=== PATIENT | male | born 1950 | race African-American/Black ===

== ENCOUNTER 2017-07-11 16:00 | Inpatient (IN) ==
[2017-07-11] MEDS ORDERED: DIPH/TET/ACEL PERT BOOSTER VACCINE 0.5 ML VIAL IM ONE (16:28)
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
[2017-07-11 17:44] LABS: Basophils # 0.1 10*3/uL (0.0-0.2); Basophils % 0.4 % (0.0-0.8); Eosinophils # 0.1 10*3/uL (0.0-0.87); Eosinophils % 0.6 % (0.00-10.9); Hematocrit 46.9 VOL% (42.0-52.0); Hemoglobin 16.2 GM/DL (14.0-18.0); Immature Granulocytes % 0.5 %; Immature Granulocytes Absolute 0.07 #; Lymphocytes # 2.4 10*3/uL (1.4-4.0); Lymphocytes % 18.1 % (21.2-54.2); Mean Corpuscular HGB Conc 34.5 GM/DL (32-36); Mean Corpuscular Hemoglobin 32 PG (27-34); Mean Corpuscular Volume 93.6 FL (87-102); Mean Platelet Volume 9.1 FL (9.6-12.0); Monocytes # 0.9 10*3/uL (0.11-0.8); Monocytes % 7.1 % (1.7-12.7); Neutrophils # 9.8 10*3/uL (1.4-7.4); Neutrophils % 73.3 % (38.7-73.9); Platelet Count 240 T/CUMM (130-400); Red Blood Count 5.01 MC/CUMM (3.8-5.5); Red Cell Distribution Width 14.9 % (9.3-17.3); White Blood Count 13.3 T/CUMM (4-12)
[2017-07-11 17:55] LABS: INR 0.9; PT Patient Result 9.9 SECS; Partial Thromboplastin Time 21.2 SECS (0-40)
[2017-07-11 17:58] LABS: Barbiturates Screen,Urine Negative (Negative); Benzodiazepines Screen,Urine Negative (Negative); Cannabinoid Screen,Urine Negative (Negative); Opiate Screen,Urine Positive (Negative); Phencyclidine Screen,Urine Negative (Negative)
[2017-07-11] MEDS ORDERED: HYDROmorphone 2 MG/1 ML VIAL IV STA (18:06)
[2017-07-11] MEDS ORDERED: ONDANSETRON 4 MG/2 ML VIAL ONE (18:06)
[2017-07-11] MEDS ORDERED: HYDROmorphone 2 MG/1 ML VIAL ONE (18:06)
[2017-07-11] MEDS ORDERED: ONDANSETRON 4 MG/2 ML VIAL IV STA (18:06)
[2017-07-11 18:08] LABS: CKMB % 1.4 %; Troponin I Only < 0.015 NG/ML (0.00-0.045)
[2017-07-11 18:09] LABS: Alanine Aminotransferase 32 U/L (16-61); Albumin 3.3 G/DL (3.4-5.0); Alkaline Phosphatase 121 U/L (45-117); Amylase 76 U/L (25-115); Aspartate Amino Transferase 25 U/L (0-37); Bilirubin,Total < 0.39 MG/DL (0.2-1.0); Blood Urea Nitrogen 18 MG/DL (7-18); Calcium 9.9 MG/DL (8.5-10.1); Glucose 131 MG/DL (74-106); Osmolality,Calculated 280.5 MOS/KG (273-304); Potassium 3.7 MMOL/L (3.5-5.1); Sodium 139 MMOL/L (136-145); Total Protein 7.7 G/DL (6.4-8.3)
[2017-07-11] MEDS ORDERED: ONDANSETRON 4 MG/2 ML VIAL IV PRN (18:52)
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
[2017-07-11] MEDS: HYDROmorphone 2 MG/1 ML VIAL IV PRN (23:30)
[2017-07-12] MEDS: HYDROmorphone 2 MG/1 ML VIAL IV PRN ×2 (06:00→23:41)
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
--- NOTE | 2017-07-12 07:55 | Order Completion Report ---
See report scanned to EMR
[2017-07-12] MEDS: PANTOPRAZOLE 40 MG TABLET PO SCH (09:55)
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
[2017-07-12] MEDS ORDERED: POLYETHYLENE GLYCOL POWDER 17 GM PACK PO PRN (12:55)
[2017-07-12] MEDS ORDERED: ALBUTEROL/IPRATROPIUM 3 ML NEB RESP TX PRN (13:19)
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
[2017-07-12 14:42] LABS: Troponin I Only < 0.015 NG/ML (0.00-0.045)
--- NOTE | 2017-07-12 15:04 | XRay Report ---
XR orbits for mri Indication: MRI clearance Comparison: None Technique: 3 views of the orbits. Findings: No metallic orbital foreign body visualized. Visualized osseous and surrounding soft tissue structures demonstrate no acute abnormality. IMPRESSION: As above. PROCEDURE INTERPRETED AT [facility] DEPARTMENT OF RADIOLOGY Final Report Signed by: Dr Mao Justin
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
--- NOTE | 2017-07-12 15:28 | Ultrasound Report ---
US carotid duplex BI Indication: Syncope. Comparison: None. Technique: Multiple longitudinal and transverse real-time sonographic images of the bilateral carotid arterial systems are obtained with grayscale, spectral, and color Doppler analysis. Findings: Peak systolic velocities within the right CCA, proximal ICA, and distal ICA are 51, 43, and 44 cm/s respectively. Peak systolic velocities within the left CCA, proximal ICA, and distal ICA are 51, 35, and 51 cm/s respectively. ICA/CCA ratios on the right and left are 0.9 and 1.0 respectively. Antegrade flow demonstrated within the bilateral vertebral arteries. Grayscale imaging demonstrates mild bilateral atherosclerotic plaque. IMPRESSION: No convincing sonographic evidence of significant (50% or greater) narrowing of either cervical internal carotid artery. Indirect NASCET criteria utilized. PROCEDURE INTERPRETED AT [facility] DEPARTMENT OF RADIOLOGY Final Report Signed by: Dr Mao Justin
[2017-07-12 15:39] LABS: Apearance,Urine Slightly Hazy (Clear); Bilirubin,Urine Negative (Negative); Blood, Urine Negative (Negative); Calcium Oxalate Crystals,Urine Few /HPF (Few); Glucose,Urine (UA) Negative (Negative); Ketones,Urine Negative (Negative); Mucus,Urine Occasional /LPF (Occasional); Nitrite,Urine Negative (Negative); Protein,Urine Negative; RBC,Urine 1 /HPF (0-4); Urine Color Yellow (Yellow); Urine Specific Gravity 1.026 (1.001-1.035); Urine Urobilinogen < 2.0 EU/DL (0.2-1.0); WBC,Urine 4 /HPF (0-6)
[2017-07-12] MEDS: MONTELUKAST 10 MG TABLET PO SCH (16:34)
[2017-07-12] MEDS: amLODIPine 10 MG TABLET PO SCH (16:34)
[2017-07-12] MEDS: FOLIC ACID 1 MG TABLET PO SCH (16:34)
[2017-07-12] MEDS: NICOTINE 21 MG/24 HR PATCH TRANSDERM SCH (16:36)
[2017-07-12 20:24] LABS: Troponin I Only < 0.015 NG/ML (0.00-0.045)
[2017-07-12] MEDS ORDERED: TRETINOIN TOP SCH (21:00)
[2017-07-12] MEDS: ATORVASTATIN 80 MG TABLET PO SCH (22:18)
[2017-07-12] MEDS: CLINDAMYCIN 1% LOTION 60 ML BOTTLE TOP SCH (22:19)
[2017-07-12] MEDS: BUDESONIDE/FORMOTEROL 160-4.5 INHALER 6 GM INH SCH (22:19)
[2017-07-13 02:27] LABS: Basophils % 0.3 % (0.0-0.8); Eosinophils # 0.1 10*3/uL (0.0-0.87); Eosinophils % 1.2 % (0.00-10.9); Hematocrit 40.5 VOL% (42.0-52.0); Hemoglobin 13.7 GM/DL (14.0-18.0); Immature Granulocytes % 0.6 %; Immature Granulocytes Absolute 0.06 #; Lymphocytes # 2.9 10*3/uL (1.4-4.0); Lymphocytes % 27.5 % (21.2-54.2); Mean Corpuscular HGB Conc 33.8 GM/DL (32-36); Mean Corpuscular Hemoglobin 32 PG (27-34); Mean Corpuscular Volume 94.4 FL (87-102); Monocytes # 0.9 10*3/uL (0.11-0.8); Monocytes % 8.5 % (1.7-12.7); Neutrophils # 6.6 10*3/uL (1.4-7.4); Neutrophils % 61.9 % (38.7-73.9); Platelet Count 208 T/CUMM (130-400); Red Blood Count 4.29 MC/CUMM (3.8-5.5); Red Cell Distribution Width 14.9 % (9.3-17.3); White Blood Count 10.7 T/CUMM (4-12)
[2017-07-13 02:55] LABS: Magnesium 2.1 MG/DL (1.8-2.4); Osmolality,Calculated 282.5 MOS/KG (273-304); Potassium 3.7 MMOL/L (3.5-5.1)
[2017-07-13 02:59] LABS: Troponin I Only < 0.015 NG/ML (0.00-0.045)
--- NOTE | 2017-07-13 06:46 | Cardiothoracic Progress Note ---
Cardiothoracic Subjective Interval history: Patient's blood pressure is under better control. He is fairly comfortable and his vital signs have been stable. Please call if I am needed. Exam (Progress Note) - Constitutional Vitals: Period Temp Pulse Resp BP Sys/[place] Pulse Ox Last 24 Hr 97.4 F-99.6 F 77-93 18-22 118-182/70-95 94-96 Result/EKG - Labs CBC & BMP: 07/13/17 01:55 07/13/17 01:55 Labs: Laboratory Results - last 24 hr 07/12/17 07/12/17 07/12/17 14:00 14:00 14:00 WBC RBC Hgb Hct MCV MCH MCHC RDW Plt Count MPV Neut % (Auto) Lymph % (Auto) [place] % (Auto) Eos % (Auto) Baso % (Auto) Neut # (Auto) Lymph # (Auto) [place] # (Auto) Eos # (Auto) Baso # (Auto) Immature Gran % Nucleated RBC % Immature Gran # Nucleated RBCs # Immature Plt Fraction Sodium Potassium Chloride Carbon Dioxide Anion Gap BUN Creatinine GFR Calculation BUN/Creatinine Ratio Glucose Hemoglobin A1c 7.4 H Calculated Osmolality Calcium Magnesium Total Creatine Kinase 594 H D CK-MB (CK-2) 3.6 Troponin I < 0.015 Urine Color Yellow Urine Appearance Slightly hazy Urine pH 5.0 Ur Specific [place] 1.026 Urine Protein Negative Urine Glucose (UA) Negative Urine Ketones Negative Urine Blood Negative Urine Nitrate Negative Urine Bilirubin Negative Urine Urobilinogen < 2.0 H Urine Leukocytes Negative Urine RBC 1 Urine WBC 4 Calcium Oxalate Crystal Few Urine Mucus Occasional Ur Culture Indicated? Not indicated 07/12/17 07/13/17 07/13/17 19:52 01:55 01:55 WBC 10.7 RBC 4.29 Hgb 13.7 L D Hct 40.5 L MCV 94.4 MCH 32 MCHC 33.8 RDW 14.9 Plt Count 208 MPV 9.0 L Neut % (Auto) 61.9 Lymph % (Auto) 27.5 [place] % (Auto) 8.5 Eos % (Auto) 1.2 Baso % (Auto) 0.3 Neut # (Auto) 6.6 Lymph # (Auto) 2.9 [place] # (Auto) 0.9 H Eos # (Auto) 0.1 Baso # (Auto) 0.0 Immature Gran % 0.6 Nucleated RBC % 0.0 Immature Gran # 0.06 Nucleated RBCs # 0.00 Immature Plt Fraction 0.0 Sodium Potassium Chloride Carbon Dioxide Anion Gap BUN Creatinine GFR Calculation BUN/Creatinine Ratio Glucose Hemoglobin A1c Calculated Osmolality Calcium Magnesium Total Creatine Kinase 701 H 661 H CK-MB (CK-2) 3.0 2.4 Troponin I < 0.015 < 0.015 Urine Color Urine Appearance Urine pH Ur Specific [place] Urine Protein Urine Glucose (UA) Urine Ketones Urine Blood Urine Nitrate Urine Bilirubin Urine Urobilinogen Urine Leukocytes Urine RBC Urine WBC Calcium Oxalate Crystal Urine Mucus Ur Culture Indicated? 07/13/17 01:55 WBC RBC Hgb Hct MCV MCH MCHC RDW Plt Count MPV Neut % (Auto) Lymph % (Auto) [place] % (Auto) Eos % (Auto) Baso % (Auto) Neut # (Auto) Lymph # (Auto) [place] # (Auto) Eos # (Auto) Baso # (Auto) Immature Gran % Nucleated RBC % Immature Gran # Nucleated RBCs # Immature Plt Fraction Sodium 139 Potassium 3.7 Chloride 106 Carbon Dioxide 27 Anion Gap 9.7 BUN 15 Creatinine 1.10 GFR Calculation 109 BUN/Creatinine Ratio 13.00 Glucose 195 H Hemoglobin A1c Calculated Osmolality 282.5 Calcium 9.0 Magnesium 2.1 Total Creatine Kinase CK-MB (CK-2) Troponin I Urine Color Urine Appearance Urine pH Ur Specific [place] Urine Protein Urine Glucose (UA) Urine Ketones Urine Blood Urine Nitrate Urine Bilirubin Urine Urobilinogen Urine Leukocytes Urine RBC Urine WBC Calcium Oxalate Crystal Urine Mucus Ur Culture Indicated? Quality Measures - VTE Contraindication to Pharmacological VTE Prophylaxis: High Risk of Bleeding
[2017-07-13] MEDS: PANTOPRAZOLE 40 MG TABLET PO SCH (09:47)
[2017-07-13] MEDS: ASPIRIN EC 81 MG TABLET PO SCH (09:47)
[2017-07-13] MEDS: amLODIPine 10 MG TABLET PO SCH (09:47)
[2017-07-13] MEDS: NICOTINE 21 MG/24 HR PATCH TRANSDERM SCH (09:48)
[2017-07-13] MEDS: predniSONE 5 MG TABLET PO SCH (09:48)
[2017-07-13] MEDS: FOLIC ACID 1 MG TABLET PO SCH (09:48)
[2017-07-13] MEDS: DULoxetine 30 MG CAPSULE PO SCH (09:48)
[2017-07-13] MEDS: MONTELUKAST 10 MG TABLET PO SCH (09:48)
[2017-07-13] MEDS: BUDESONIDE/FORMOTEROL 160-4.5 INHALER 6 GM INH SCH ×2 (09:50→22:36)
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
[2017-07-13] MEDS ORDERED: GLUCAGON 1 MG VIAL IM PRN (12:15)
[2017-07-13] MEDS ORDERED: DEXTROSE 50% 25 GM/50 ML VIAL IV PRN (12:15)
--- NOTE | 2017-07-13 15:09 | Magnetic Resonance Report ---
MR head/brain wo con Indication: Syncope Comparison: CT brain July 11, 2017 Technique: Multiplanar magnetic resonance imaging was performed of the brain without the use of intravenous contrast. Findings: Small encephalomalacia involving the ventral right frontal lobe consistent with old infarct. Trace encephalomalacia involving the dorsal right frontal lobe consistent with old infarct. Mild periventricular/subcortical T2 hyperintensity noted which is nonspecific but consistent with chronic microvascular ischemic change. Mild global volume loss present. The midline structures are nondisplaced. There is no convincing evidence of hydrocephalus. There is no convincing evidence of acute intracranial hemorrhage or ischemia. The included orbits and their contents appear within normal limits. T2 major vascular flow voids are maintained. IMPRESSION: No acute intracranial abnormality demonstrated. 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 Trace encephalomalacia involving the dorsal right frontal lobe consistent with old infarct. Mild periventricular/subcortical T2 hyperintensity noted which is nonspecific but consistent with chronic microvascular ischemic change. Mild global volume loss present. PROCEDURE INTERPRETED AT [facility] DEPARTMENT OF RADIOLOGY Final Report Signed by: Dr Mao Justin
--- NOTE | 2017-07-13 15:31 | Event Note ---
Patient is not in room. He is gone for EEG. I appreciate the help from consultants. We did not appear to have any injuries that will need intervention. I agree with his medical workup.
[2017-07-13] MEDS: INSULIN LISPRO 100 UNIT/ML SUBCUT SCH ×2 (17:21→21:50)
[2017-07-13] MEDS: metFORMIN 500 MG TABLET PO SCH (17:22)
[2017-07-13] MEDS: CLINDAMYCIN 1% LOTION 60 ML BOTTLE TOP SCH ×3 (18:13→21:49)
[2017-07-13] MEDS: ATORVASTATIN 80 MG TABLET PO SCH (21:48)
[2017-07-14 04:46] LABS: Calcium 9.1 MG/DL (8.5-10.1); Osmolality,Calculated 278.5 MOS/KG (273-304); Potassium 3.8 MMOL/L (3.5-5.1)
[2017-07-14] MEDS: INSULIN LISPRO 100 UNIT/ML SUBCUT SCH ×3 (07:59→16:52)
[2017-07-14] MEDS: NICOTINE 21 MG/24 HR PATCH TRANSDERM SCH (09:20)
[2017-07-14] MEDS: BUDESONIDE/FORMOTEROL 160-4.5 INHALER 6 GM INH SCH (09:20)
[2017-07-14] MEDS: amLODIPine 10 MG TABLET PO SCH (09:21)
[2017-07-14] MEDS: ASPIRIN EC 81 MG TABLET PO SCH (09:21)
[2017-07-14] MEDS: MONTELUKAST 10 MG TABLET PO SCH (09:22)
[2017-07-14] MEDS: metFORMIN 500 MG TABLET PO SCH (09:22)
[2017-07-14] MEDS: FOLIC ACID 1 MG TABLET PO SCH (09:22)
[2017-07-14] MEDS: DULoxetine 30 MG CAPSULE PO SCH (09:22)
[2017-07-14] MEDS: PANTOPRAZOLE 40 MG TABLET PO SCH (09:22)
[2017-07-14] MEDS: predniSONE 5 MG TABLET PO SCH (09:22)
[2017-07-14] MEDS: CLINDAMYCIN 1% LOTION 60 ML BOTTLE TOP SCH (09:24)
[2017-07-14] MEDS ORDERED: PROPOFOL 200 MG/20 ML VIAL IV ONE (09:31)
[2017-07-14] MEDS ORDERED: LIDOCAINE 2% 5 ML VIAL ONE (09:31)
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
[2017-07-14 17:14] VITALS: BP 114/74
[2017-07-17] MEDS ORDERED: METHOTREXATE 2.5 MG TABLET PO SCH (09:00)
== END 2017-07-14 17:28 | disposition home or self-care (01) | DRG 301 ==
LOC: EDUNIT# → EDBD → N.ED 16:00 → N.EDINP 18:50 → N.TELES 19:26
PROVIDERS: ADMIT Surgery; ATTEND Surgery